=== PATIENT | male | born 1955 | race Caucasian/White ===

== ENCOUNTER 2017-08-11 05:37 | Inpatient (IN) | payer BC ==
[2017-08-08 13:24] VITALS: BMI 26.6
[~2017-08-11 05:37] MED LIST: BUPIVACAINE HCL/PF (5 MG/ML) 30 ML VIAL IJ ONE
[2017-08-11] MEDS ORDERED: MIDAZOLAM HCL 2 MG/2 ML SINGLE DOSE VIAL ONE (10:12)
[2017-08-11] MEDS ORDERED: ROCURONIUM BROMIDE 50 MG/5 ML VIAL ONE ×2 (10:12→12:20)
[2017-08-11] MEDS ORDERED: LIDOCAINE HCL/PF 2% SDV 5ML VIAL ONE (10:12)
[2017-08-11] MEDS ORDERED: PROPOFOL 20 ML ONE (10:12)
[2017-08-11] MEDS ORDERED: fentaNYL CITRATE 250 MCG/5 ML VIAL ONE (10:12)
[2017-08-11] MEDS ORDERED: ONDANSETRON 4 MG/2 ML VIAL IVPUSH PRN ×2 (10:29→14:56)
[2017-08-11] MEDS ORDERED: GENTAMICIN SO4 80 MG/2 ML VIAL ONE (10:33)
[2017-08-11] MEDS ORDERED: THROMBIN (BOVINE) 20,000 UNIT VIAL TP ONE (10:34)
[2017-08-11] MEDS ORDERED: BUPIVACAINE HCL/PF 0.5% (5MG/ML) 10 ML VIAL ONE (10:35)
[2017-08-11] MEDS ORDERED: THROMBIN (BOVINE) 5,000 UNIT VIAL TP ONE (10:42)
[2017-08-11] MEDS ORDERED: SODIUM CHLORIDE 0.9% P/F 10 ML VIAL IJ ONE ×3 (10:51→12:15)
--- NOTE | 2017-08-11 11:24 | HP ---
History & Physical Update - History History: No Change - Physical Physical: No Change - Assessment Assessment: No Change - Plan Plan: No Change (full H&P in chart from Dr. Leonard on 08/08/2017)
[2017-08-11] MEDS ORDERED: ceFAZolin SODIUM 1 GM VIAL ONE ×2 (11:52→22:41)
[2017-08-11] MEDS ORDERED: ceFAZolin SODIUM 1 GM VIAL IVPB ONE (11:54)
[2017-08-11] MEDS ORDERED: VANCOMYCIN 1,000 MG VIAL (RESTRICTED TO ID ONLY) ONE ×2 (11:55→12:15)
[2017-08-11] MEDS ORDERED: VANCOMYCIN 1,000 MG VIAL (RESTRICTED TO ID ONLY) IVPB ONE ×2 (11:56→12:09)
[2017-08-11] MEDS ORDERED: ONDANSETRON 4 MG/2 ML VIAL ONE ×2 (11:59→13:14)
[2017-08-11] MEDS ORDERED: HYDROGEN PEROXIDE 473 ML PO ONE (12:09)
[2017-08-11] MEDS ORDERED: GENTAMICIN SO4 80 MG/2 ML VIAL IVPB ONE (12:09)
[2017-08-11] MEDS ORDERED: BACITRACIN 50,000 UNITS VIAL NR ONE ×2 (12:09)
[2017-08-11] MEDS ORDERED: BUPIVACAINE HCL/PF (5 MG/ML) 30 ML VIAL IJ ONE (13:20)
[2017-08-11] MEDS ORDERED: GLYCOPYRROLATE 0.2 MG/1 ML VIAL ONE (13:22)
[2017-08-11] MEDS ORDERED: NEOSTIGMINE METHYLSULFATE 0.5 MG/ML - 10 ML MDV ONE (13:23)
[2017-08-11] MEDS: HYDROmorphone *PCA* 10MG/50ML DISP.SYRIN PCA SCH ×3 (14:30→17:55)
[2017-08-11] MEDS ORDERED: ACETAMINOPHEN 325 MG TABLET (FP) PO PRN (14:56)
[2017-08-11] MEDS ORDERED: PROMETHAZINE HCL 25 MG/1 ML VIAL IVPB PRN (15:08)
[2017-08-11] MEDS ORDERED: PANTOPRAZOLE 20 MG TABLET (FP) PO PRN (15:08)
[2017-08-11] MEDS ORDERED: DEXAMETHASONE SOD PHOSPHATE 4 MG/1 ML VIAL IVPUSH ONE (15:15)
--- NOTE | 2017-08-11 16:28 | OP ---
Operative Note - Note: Operative Date: 08/11/17 Pre-Operative Diagnosis: L2 fracture Operation: L1 to L2, L2 to L3 posterior lumbar decompression/fusion with pedicle screws Surgeon: Foster Duggan Refuse Driver: Briseida Candelaria Anesthesiologist/HOME HELP AIDE: Otis Amin Anesthesia: General Estimated Blood Loss (mls): 75 Drains, Volume Out (mls): 250 (ahuja) Fluid Volume Replaced (mls): 1,200 Operative Report Dictated: Yes
[2017-08-11 16:52] LABS: HEMATOCRIT 37.5 % (35.4-49); HEMOGLOBIN 12.5 GM/dL (11.7-16.9); MCH 31.6 pg (25.7-33.7); MCHC 33.3 g/dl (32.0-35.9); MEAN PLT VOLUME 8.9 fl (7.5-11.1); PLATELET COUNT 204 K/MM3 (134-434); RBC 3.94 M/mm3 (4.00-5.60); RDW 13.8 % (11.9-15.9); WHITE BLOOD COUNT 7.3 K/mm3 (4.0-10.0)
[2017-08-11] MEDS: LACTATED RINGERS SOLUTION 1,000 ML IV SCH (17:45)
[2017-08-11] MEDS ORDERED: DEXTROSE 5%-WATER - 50 ML IVPB ONE (22:41)
[2017-08-11] MEDS: CEFAZOLIN 1 GM in DEXTROSE 5%-WATER - 50 ML IVPB SCH (22:42)
[2017-08-12] MEDS: HYDROmorphone *PCA* 10MG/50ML DISP.SYRIN PCA SCH ×2 (00:24→14:48)
[2017-08-12] MEDS: LACTATED RINGERS SOLUTION 1,000 ML IV SCH ×2 (00:25→15:29)
[2017-08-12] MEDS: CEFAZOLIN 1 GM in DEXTROSE 5%-WATER - 50 ML IVPB SCH ×4 (00:25→15:03)
[2017-08-12] MEDS: HEPARIN NA (PORCINE) 5,000 UNITS/ML 1ML VIAL SQ SCH ×4 (00:25→23:55)
[2017-08-12] MEDS ORDERED: ceFAZolin SODIUM 1 GM VIAL ONE ×3 (01:15→15:01)
[2017-08-12] MEDS ORDERED: DEXTROSE 5%-WATER - 50 ML IVPB ONE ×3 (01:15→15:01)
[2017-08-12 08:20] LABS: HEMATOCRIT 33.7 % (35.4-49); HEMOGLOBIN 11.2 GM/dL (11.7-16.9); MCH 31.5 pg (25.7-33.7); MCHC 33.2 g/dl (32.0-35.9); MEAN CELL VOLUME 94.7 fl (80-96); PLATELET COUNT 178 K/MM3 (134-434); RBC 3.56 M/mm3 (4.00-5.60); RDW 13.5 % (11.9-15.9); WHITE BLOOD COUNT 11.5 K/mm3 (4.0-10.0)
[2017-08-12 08:42] LABS: CHLORIDE 106 mmol/L (98-107); SODIUM 140 mmol/L (136-145)
[2017-08-12] MEDS: PANTOPRAZOLE 20 MG TABLET (FP) PO SCH (09:17)
[2017-08-12] MEDS: DOCUSATE SODIUM 100 MG CAPSULE (FP) PO SCH ×2 (09:17→23:55)
[2017-08-12 09:39] LABS: ANION GAP 8 (8-16); BLOOD UREA NITROGEN 8 mg/dL (7-18); CALCIUM 7.9 mg/dL (8.5-10.1); CO2 26 mmol/L (21-32); CREATININE 0.8 mg/dL (0.7-1.3); GLUCOSE,RANDOM 111 mg/dL (74-106)
--- NOTE | 2017-08-12 10:50 | HP ---
Admitting History and Physical - Primary Care Physician PCP: Gallo Grimes - Admission Chief Complaint: back pain History of Present Illness: patient admitted with back pain with no past medical history past surgical: rib practure and pneumothorax fractured l1-l2 - Smoking History Smoking history: Never smoked Have you smoked in the past 12 months: Yes - Alcohol/Substance Use Hx Alcohol Use: Yes (RED WINE) Home Medications - Allergies Allergies/Adverse Reactions: Allergies Allergy/AdvReac Type Severity Reaction Status Date / Time banana Allergy Severe Verified 08/11/17 10:15 - Home Medications Home Medications: Ambulatory Orders Oxycodone Hydrochloride 1 tab PO PRN PRN 08/08/17 Pantoprazole Sodium [Protonix -] 20 mg PO PRN PRN 08/08/17 Physical Examination Vital Signs: Vital Signs Temperature 97.6 F 08/12/17 06:28 Pulse Rate 78 08/12/17 06:28 Respiratory Rate 20 08/12/17 06:28 Blood Pressure 106/65 08/12/17 06:28 O2 Sat by Pulse Oximetry (%) 99 08/11/17 16:50 Constitutional: Yes: Calm Neck: Yes: Trachea Midline Cardiovascular: Yes: Regular Rate and Rhythm, S1, S2 Respiratory: Yes: CTA Bilaterally Gastrointestinal: Yes: Normal Bowel Sounds, Soft Edema: No Neurological: Yes: Alert, Oriented Labs: CBC, BMP 08/12/17 06:30 08/12/17 06:30 Imaging - Results Cat Scan: Report Reviewed Problem List - Problems (1) Back pain Assessment/Plan: - Note: Operative Date: 08/11/17 Pre-Operative Diagnosis: L2 fracture Operation: L1 to L2, L2 to L3 posterior lumbar decompression/fusion with pedicle screws Surgeon: Foster Duggan Open Hearth Furnace Operator Helper: Briseida Candelaria Anesthesiologist/INSULATION ESTIMATOR: Otis Amin Anesthesia: General Estimated Blood Loss (mls): 75 Drains, Volume Out (mls): 250 (ahuja) Fluid Volume Replaced (mls): 1,200 Operative Report Dictated: Yes LEATHER SPRAYER pump dvt ppx zofran stool softners ancef ahuja-trial of voiding once cleared by KEVIN Code(s): M54.9 - DORSALGIA, UNSPECIFIED Qualifiers: Back pain location: low back pain Chronicity: acute Back pain laterality : right Sciatica presence: without sciatica Qualified Code(s): M54.5 - Low back pain (2) Enlarged prostate Assessment/Plan: PSA ordered Code(s): N40.0 - BENIGN PROSTATIC HYPERPLASIA WITHOUT LOWER URINRY TRACT SYMP
--- NOTE | 2017-08-12 23:25 | PN ---
Progress Note (short form) - Note Progress Note: Anesthesia postop note and pain management follow up 61 y/o M s/p GA for PLIF, restaurant area director for pain control POD#1, vss, aaox3, pain well controlled on restaurant area director, will continue restaurant area director today No anesthesia complications.
[2017-08-13 08:02] LABS: BASO % 0.4 % (0-2.0); EOS % 0.6 % (0-4.5); HEMATOCRIT 30.9 % (35.4-49); HEMOGLOBIN 10.6 GM/dL (11.7-16.9); LYMPH % 23.4 % (8-40); MCH 32.2 pg (25.7-33.7); MCHC 34.2 g/dl (32.0-35.9); MEAN PLT VOLUME 9.2 fl (7.5-11.1); MONO % 11.5 % (3.8-10.2); NEUT % 64.1 % (42.8-82.8); PLATELET COUNT 192 K/MM3 (134-434); RBC 3.28 M/mm3 (4.00-5.60); RDW 13.4 % (11.9-15.9); WHITE BLOOD COUNT 6.3 K/mm3 (4.0-10.0)
[2017-08-13] MEDS: HEPARIN NA (PORCINE) 5,000 UNITS/ML 1ML VIAL SQ SCH ×3 (08:03→22:21)
[2017-08-13 08:34] LABS: ALBUMIN 2.9 g/dl (3.4-5.0); CALCIUM 7.7 mg/dL (8.5-10.1); CHLORIDE 102 mmol/L (98-107); POTASSIUM 3.8 mmol/L (3.5-5.1); SODIUM 140 mmol/L (136-145)
[2017-08-13 08:40] LABS: ALK PHOS 58 U/L (45-117); ANION GAP 7 (8-16); BILIRUBIN,TOTAL 0.8 mg/dL (0.2-1.0); BLOOD UREA NITROGEN 10 mg/dL (7-18); CO2 31 mmol/L (21-32); CREATININE 0.9 mg/dL (0.7-1.3); GLUCOSE,RANDOM 104 mg/dL (74-106); SGOT/AST 18 U/L (15-37); SGPT/ALT 15 U/L (12-78); TOT PROT 5.7 g/dl (6.4-8.2)
[2017-08-13] MEDS: DOCUSATE SODIUM 100 MG CAPSULE (FP) PO SCH ×2 (09:23→22:21)
[2017-08-13] MEDS: HYDROmorphone *PCA* 10MG/50ML DISP.SYRIN PCA SCH ×2 (09:23→15:21)
[2017-08-13] MEDS: PANTOPRAZOLE 20 MG TABLET (FP) PO SCH (09:23)
--- NOTE | 2017-08-13 09:31 | PN ---
Progress Note (short form) - Note Progress Note: POD#2 Pt with complaints of back pain. OOB yesterday with PT and ambulated. Voiding without difficulty. Tolerating a regular diet wihtout nausea or emesis No bowel function. Vital Signs Period Temp Pulse Resp BP Sys/Broderick Pulse Ox Last 24 Hr 98 F-100.1 F 65-82 18-20 106-125/62-87 DESTINY: serosangrenous, 115ml GEN: A&0x3 NAD CV: RRR Lungs: CTA b/l ABD: soft, non-distended, non-tender BACK: Dressing c/d/i with Aquacel. 3 dried blood spots the size of a dime. Destiny removed without difficulty and 4x4 gauze tegaderm applied. LE: 5/5 dorsi/plantar flexion/EHL b/l. CBC, BMP 08/13/ 07:00 05/ 07:00 A/P: 61 yo male s/p L1-L3 posterior lumbar fusion/decompression for L2 fracture DESTINY removed today Using IV dilaudid DENTIST ATTENDANT for pain control, added valium to help with pain and hopefully wean off of DENTIST ATTENDANT. Continue stool softners OOB with PT/TLSO brace Heparin SQ for DVT ppx and SCDs Regular diet as tolerated IV fluids decreased
[2017-08-13] MEDS: LACTATED RINGERS SOLUTION 1,000 ML IV SCH (10:10)
[2017-08-13] MEDS: diazePAM 5 MG TABLET PO SCH ×2 (10:41→22:22)
--- NOTE | 2017-08-13 13:58 | PN ---
Progress Note (short form) - Note Progress Note: Anesthesia post op/pain Pt seen and examined S:alert and awake comfortable O: Vital Signs Temperature 99.3 F 08/13/17 09:28 Pulse Rate 80 08/13/17 09:28 Respiratory Rate 18 08/13/17 09:28 Blood Pressure 115/60 08/13/17 09:28 O2 Sat by Pulse Oximetry (%) 99 08/11/17 16:50 CBC, BMP 08/13/17 07:00 08/13/17 07:00 A/P:L1-L3 Posterior decompression and instrumentation and fusion s/p Doing well post op Uses SUGAR DRIER Continue SUGAR DRIER Continue current care John Erwin MD
[2017-08-13] MEDS: POLYETHYLENE GLYCOL 3350 119 GM BTL PO PRN (18:28)
--- NOTE | 2017-08-13 22:42 | PN ---
Progress Note, Physician Chief Complaint: Lower back pain History of Present Illness: L1-L3 Posterior decompression and instrumentation and fusion s/p Doing well post op Using SOAP TENDER Voiding well walked with PT yesterday - Current Medication List Current Medications: Active Medications Acetaminophen (Tylenol -) 650 mg PO Q4H PRN PRN Reason: FEVER Diazepam (Valium -) 5 mg PO BID [facility] Last Admin: 08/13/17 22:22 Dose: 5 mg Docusate Sodium (Colace -) 100 mg PO BID [facility] Last Admin: 08/13/17 22:21 Dose: 100 mg Heparin Sodium (Porcine) (Heparin -) 5,000 unit SQ TID [facility] Last Admin: 08/13/17 22:21 Dose: 5,000 unit Hydromorphone HCl (Dilaudid Exhibits Coordinator -) 10 mg SOAP TENDER SOAP TENDER [facility]; Protocol Stop: 08/18/17 10:29 Last Admin: 08/13/17 15:21 Dose: Not Given Lactated Ringer's (Lactated Ringers Solution) 1,000 mls @ 10 mls/hr IV ASDIR [facility] Last Admin: 08/13/17 10:10 Dose: Not Given Ondansetron HCl (Zofran Injection) 4 mg IVPUSH Q6H PRN PRN Reason: NAUSEA AND/OR VOMITING Pantoprazole Sodium (Protonix -) 20 mg PO DAILY [facility] Last Admin: 08/13/17 09:23 Dose: 20 mg Polyethylene Glycol (Miralax (For Daily Use) -) 17 gm PO DAILY PRN PRN Reason: CONSTIPATION Last Admin: 08/13/17 18:28 Dose: 17 grams Promethazine HCl (Phenergan Injection -) 12.5 mg IVPB Q6H PRN PRN Reason: NAUSEA AND/OR VOMITING - Objective Vital Signs: Vital Signs Temperature 98.6 F 08/13/17 21:35 Pulse Rate 82 08/13/17 21:35 Respiratory Rate 18 08/13/17 21:35 Blood Pressure 126/67 08/13/17 21:35 O2 Sat by Pulse Oximetry (%) 99 08/13/17 09:00 Constitutional: Yes: Well Nourished, No Distress, Calm Cardiovascular: Yes: Regular Rate and Rhythm Respiratory: Yes: Regular Gastrointestinal: Yes: Normal Bowel Sounds, Soft Musculoskeletal: Yes: Back Pain, Muscle Weakness Extremities: Yes: WNL Wound/Incision: Yes: Dressing Dry and Intact Neurological: Yes: Alert, Oriented Psychiatric: Yes: Alert, Oriented Labs: CBC, BMP 08/13/17 07:00 08/13/17 07:00 Problem List - Problems (1) Back pain Assessment/Plan: perative Date: 08/11/17 Pre-Operative Diagnosis: L2 fracture Operation: L1 to L2, L2 to L3 posterior lumbar decompression/fusion with pedicle screws Surgeon: Foster Duggan Continue SOAP TENDER pump for now, taper off as per surgery and anesthesia recommendation dvt ppx zofran stool softners Physical therapy Code(s): M54.9 - DORSALGIA, UNSPECIFIED Qualifiers: Back pain location: low back pain Chronicity: acute Back pain laterality : right Sciatica presence: without sciatica Qualified Code(s): M54.5 - Low back pain (2) Anemia Assessment/Plan: -2/2 to surgery, dilutional -repeat labs in AM -check iron profile and b12 Code(s): D64.9 - ANEMIA, UNSPECIFIED Assessment/Plan see problem list
[2017-08-14] MEDS: HEPARIN NA (PORCINE) 5,000 UNITS/ML 1ML VIAL SQ SCH ×3 (06:20→21:06)
[2017-08-14 08:34] LABS: BASO % 0.2 % (0-2.0); EOS % 0.2 % (0-4.5); HEMATOCRIT 33.1 % (35.4-49); HEMOGLOBIN 11.2 GM/dL (11.7-16.9); LYMPH % 11.2 % (8-40); MCH 31.7 pg (25.7-33.7); MCHC 33.9 g/dl (32.0-35.9); MEAN CELL VOLUME 93.6 fl (80-96); MEAN PLT VOLUME 8.7 fl (7.5-11.1); MONO % 10.6 % (3.8-10.2); NEUT % 77.8 % (42.8-82.8); PLATELET COUNT 175 K/MM3 (134-434); RBC 3.54 M/mm3 (4.00-5.60); RDW 13.5 % (11.9-15.9); WHITE BLOOD COUNT 7.6 K/mm3 (4.0-10.0)
[2017-08-14 08:55] LABS: CHLORIDE 97 mmol/L (98-107); POTASSIUM 3.6 mmol/L (3.5-5.1); SODIUM 133 mmol/L (136-145)
[2017-08-14 09:34] LABS: ALBUMIN 2.9 g/dl (3.4-5.0); ALK PHOS 60 U/L (45-117); ANION GAP 7 (8-16); BILIRUBIN,TOTAL 0.7 mg/dL (0.2-1.0); BLOOD UREA NITROGEN 7 mg/dL (7-18); CALCIUM 7.9 mg/dL (8.5-10.1); CO2 29 mmol/L (21-32); CREATININE 0.7 mg/dL (0.7-1.3); GLUCOSE,RANDOM 109 mg/dL (74-106); SGOT/AST 18 U/L (15-37); SGPT/ALT 17 U/L (12-78); TOT PROT 6.1 g/dl (6.4-8.2)
[2017-08-14] MEDS: DOCUSATE SODIUM 100 MG CAPSULE (FP) PO SCH ×3 (09:50→21:05)
[2017-08-14] MEDS: PANTOPRAZOLE 20 MG TABLET (FP) PO SCH (09:50)
[2017-08-14] MEDS: diazePAM 5 MG TABLET PO SCH ×2 (09:50→21:05)
[2017-08-14] MEDS: LACTATED RINGERS SOLUTION 1,000 ML IV SCH (09:50)
[2017-08-14] MEDS: POLYETHYLENE GLYCOL 3350 119 GM BTL PO PRN (09:50)
--- NOTE | 2017-08-14 13:06 | PN ---
Progress Note (short form) - Note Progress Note: s/p L1-3 lumbar fusion post op day 3, core manager for pain control. not using core manager often but not tolerating PO. advised we will convert to oral analgesics once tolerating PO. Will continue core manager for now.
--- NOTE | 2017-08-14 13:16 | PN ---
Progress Note, Physician Chief Complaint: patient seen and examine had a small BM today says he is not using PAVER OPERATOR pump - Current Medication List Current Medications: Active Medications Acetaminophen (Tylenol -) 650 mg PO Q4H PRN PRN Reason: FEVER Diazepam (Valium -) 5 mg PO BID [facility] Last Admin: 08/14/17 09:50 Dose: 5 mg Docusate Sodium (Colace -) 100 mg PO TID ROBBY Heparin Sodium (Porcine) (Heparin -) 5,000 unit SQ TID [facility] Last Admin: 08/14/17 06:20 Dose: 5,000 unit Hydromorphone HCl (Dilaudid Senior Relationship Manager -) 10 mg PAVER OPERATOR PAVER OPERATOR [facility]; Protocol Stop: 08/18/17 10:29 Last Admin: 08/13/17 15:21 Dose: Not Given Ondansetron HCl (Zofran Injection) 4 mg IVPUSH Q6H PRN PRN Reason: NAUSEA AND/OR VOMITING Last Admin: 08/14/17 01:26 Dose: 4 mg Pantoprazole Sodium (Protonix -) 20 mg PO DAILY [facility] Last Admin: 08/14/17 09:50 Dose: 20 mg Polyethylene Glycol (Miralax (For Daily Use) -) 17 gm PO DAILY PRN PRN Reason: CONSTIPATION Last Admin: 08/14/17 09:50 Dose: 17 grams Promethazine HCl (Phenergan Injection -) 12.5 mg IVPB Q6H PRN PRN Reason: NAUSEA AND/OR VOMITING - Objective Vital Signs: Vital Signs Temperature 98.0 F 08/14/17 09:52 Pulse Rate 94 H 08/14/17 09:52 Respiratory Rate 18 08/14/17 09:52 Blood Pressure 133/78 08/14/17 09:52 O2 Sat by Pulse Oximetry (%) 97 08/13/17 21:00 Constitutional: Yes: Calm Cardiovascular: Yes: Regular Rate and Rhythm, S1, S2 Respiratory: Yes: CTA Bilaterally Gastrointestinal: Yes: Normal Bowel Sounds, Soft Musculoskeletal: Yes: Other (midline dressing) Extremities: Yes: Other (scd) Edema: No Neurological: Yes: Alert, Oriented Labs: CBC, BMP 08/14/17 07:30 08/14/17 07:30 Problem List - Problems (1) Back pain Assessment/Plan: - Note: Operative Date: 08/11/17 Pre-Operative Diagnosis: L2 fracture Operation: L1 to L2, L2 to L3 posterior lumbar decompression/fusion with pedicle screws Surgeon: Foster Duggan Commercial Sales Representative: Briseida Candelaria Anesthesiologist/MESSAGE AND DELIVERY SERVICE PRICER: Otis Amin Anesthesia: General Estimated Blood Loss (mls): 75 Drains, Volume Out (mls): 250 (ahuja) Fluid Volume Replaced (mls): 1,200 Operative Report Dictated: Yes PAVER OPERATOR pump dc dvt ppx zofran stool softners and miralax ancef ahuja-trial of voiding once cleared by KEVIN dc ivf. PT eval Code(s): M54.9 - DORSALGIA, UNSPECIFIED Qualifiers: Back pain location: low back pain Chronicity: acute Back pain laterality : right Sciatica presence: without sciatica Qualified Code(s): M54.5 - Low back pain (2) Enlarged prostate Assessment/Plan: PSA noted ok Code(s): N40.0 - BENIGN PROSTATIC HYPERPLASIA WITHOUT LOWER URINRY TRACT SYMP
[2017-08-14] MEDS ORDERED: ACETAMINOPHEN 325 MG TABLET (FP) PO PRN (14:25)
[2017-08-14] MEDS ORDERED: SIMETHICONE 80 MG TAB.CHEW (FP) PO PRN (16:40)
[2017-08-14] MEDS: oxyCODONE HCL 5 MG TABLET PO PRN (16:45)
--- NOTE | 2017-08-14 16:48 | PN ---
Progress Note (short form) - Note Progress Note: Surgery POD #3 L1 -L3 posterior lumbar decompression/fusion with pedicle screws. Patient seen and examined at bedside. Patient c/o mild anterior thigh pain b/l and states he is having lots of gas pain. He is tolerating a regular diet and just moved his bowels for the first time this afternoon. He has been OOB ambulating with assist and he denies any CP, SOB, N/V/D, Fever or Chills. Vital Signs Temp 98.8 F 08/14/17 14:05 Pulse 93 H 08/14/17 14:05 Resp 16 08/14/17 14:05 BP 131/77 08/14/17 14:05 Pulse Ox 97 08/13/17 21:00 Intake & Output 08/13/17 08/14/17 08/14/17 23:59 11:59 23:59 Intake Total 120 Output Total 700 Balance -580 Intake: IV 120 Lactated Ringers Solution 120 1,000 ml @ 10 mls/hr IV ASDIR ROBBY Rx#:[id number] Output: Urine 700 Void 700 Other: Voiding Method Urinal Toilet # Unmeasured Voids Void 3 CBC, BMP 08/14/17 07:30 08/14/17 07:30 PE: A&Ox3, NAD unlabored resp on RA incision over lumbar spine, d/c/i with сергей insitu, no tracking erythema, edema, d/c of evidence of collection. drain site c/d/i with no d/c. Aquacell dressing applied to midline incision, pressure dressing applied to drain site. b/l LE compartments soft, supple and non-tender to palpation with + pedal pulses , 5/5 dorsi/plantar flexion and sensation to light touch intact throughout. Problem List - Problems (1) S/P laminectomy with spinal fusion Assessment/Plan: POD #3 miltilevel lumbar decompression and fusion, patient doing well. 1) Continue TLSO brace when OOB-OOB as tolerated 2) continue DVT prophylaxis 3) daily IS 4) simenthcone added for gas- encourage hydration and ambulation 5) d/c planning for home likely tomorrow. Evaluation and plan discussed with Dr Duggan. Code(s): Z98.1 - ARTHRODESIS STATUS
[2017-08-15] MEDS: oxyCODONE HCL 5 MG TABLET PO PRN (02:40)
[2017-08-15] MEDS: HEPARIN NA (PORCINE) 5,000 UNITS/ML 1ML VIAL SQ SCH ×2 (05:56→14:27)
[2017-08-15] MEDS: DOCUSATE SODIUM 100 MG CAPSULE (FP) PO SCH ×2 (06:03→14:27)
[2017-08-15 06:08] LABS: SERUM IRON SATURATION 9 % (15-55); TOTAL IRON BINDING CAPACITY 229 ug/dL (250-450); UIBC 209 ug/dL (111-343)
[2017-08-15 09:26] LABS: CHLORIDE 101 mmol/L (98-107); POTASSIUM 3.8 mmol/L (3.5-5.1); SODIUM 138 mmol/L (136-145)
[2017-08-15 09:36] LABS: ALBUMIN 2.8 g/dl (3.4-5.0); ALK PHOS 56 U/L (45-117); ANION GAP 7 (8-16); BILIRUBIN,TOTAL 0.7 mg/dL (0.2-1.0); BLOOD UREA NITROGEN 8 mg/dL (7-18); CO2 30 mmol/L (21-32); CREATININE 0.7 mg/dL (0.7-1.3); GLUCOSE,RANDOM 93 mg/dL (74-106); SGOT/AST 17 U/L (15-37); SGPT/ALT 17 U/L (12-78)
[2017-08-15] MEDS: diazePAM 5 MG TABLET PO SCH (09:36)
[2017-08-15] MEDS: PANTOPRAZOLE 20 MG TABLET (FP) PO SCH (09:36)
--- NOTE | 2017-08-15 10:55 | PN ---
Progress Note (short form) - Note Progress Note: Anesthesia DIRECTOR RELIGIOUS EDUCATION order POD #4. L1 -L3 posterior lumbar decompression/fusion with pedicle screws. Pain well controlled. On po analgetics. DIRECTOR RELIGIOUS EDUCATION d/c'd. Signed off.
--- NOTE | 2017-08-15 13:37 | PN ---
Progress Note (short form) - Note Progress Note: Pt having bowel, movement and tolerating a diet Vital Signs Period Temp Pulse Resp BP Sys/Broderick Pulse Ox Last 24 Hr 98.4 F-99.1 F 82-93 16-20 100-131/54-77 97-97 GEN: Appears comfortable Abd: soft, non-distended, non-tender Back: dressing from surgery remains c/d/i, DESTINY removal site dry. LE: no calf tendnerss or swelling noted b/l CBC, BMP 08/14/17 07:30 08/15/17 07:00 A/P: 61 yo male s/p L1-L3 posterior lumbar fusion/decompression for L2 fracture Pt seen by Dr. Duggan this am and cleared for discharge. Script and instructions were given to the patient and completed on his discharge paperwork
[2017-08-15 14:03] VITALS: BP 108/73; PULSE 92; TEMP 98.3
--- NOTE | 2017-08-15 15:09 | DS ---
"Physical Examination Vital Signs: Vital Signs Temperature 98.3 F 08/15/17 14:01 Pulse Rate 92 H 08/15/17 14:01 Respiratory Rate 20 08/15/17 14:01 Blood Pressure 108/73 08/15/17 14:01 O2 Sat by Pulse Oximetry (%) 97 08/15/17 09:00 Constitutional: Yes: Calm Neck: Yes: Trachea Midline Cardiovascular: Yes: Regular Rate and Rhythm, S1, S2 Respiratory: Yes: CTA Bilaterally Gastrointestinal: Yes: Normal Bowel Sounds, Soft Musculoskeletal: Yes: Other (midline incision) Edema: No Labs: CBC, BMP 08/14/17 07:30 08/15/17 07:00 Discharge Summary Reason For Visit: LUMBAR 1 & 2 FRACTURES Current Active Problems Anemia (Acute) Enlarged prostate (Acute) S/P laminectomy with spinal fusion (Acute) Hospital Course: - Primary Care Physician PCP: Gallo Grimes - Admission Chief Complaint: back pain History of Present Illness: patient admitted with back pain with no past medical history past surgical: rib practure and pneumothorax fractured l1-l2 - Smoking History Smoking history: Never smoked Have you smoked in the past 12 months: Yes - Alcohol/Substance Use Hx Alcohol Use: Yes (RED WINE) Home Medications - Allergies Allergies/Adverse Reactions: Allergies Allergy/AdvReac Type Severity Reaction Status Date / Time banana Allergy Severe Verified 08/11/17 10:15 Operative Note - Note: Operative Date: 08/11/17 Pre-Operative Diagnosis: L2 fracture Operation: L1 to L2, L2 to L3 posterior lumbar decompression/fusion with pedicle screws Surgeon: Foster Duggan Manager Finance: Briseida Candelaria Anesthesiologist/STEELSCOPE OPERATOR: Otis Amin Anesthesia: General Estimated Blood Loss (mls): 75 Drains, Volume Out (mls): 250 (ahuja) Fluid Volume Replaced (mls): 1,200 Operative Report Dictated: Yes DESTINY drain removed and now ready to go home Condition: Good - Instructions Diet, Activity, Other Instructions: This report was requested by: Briseida Candelaria | Reference #: [id number] 07/30/2017 07/30/2017 oxycodone-acetaminophen 5-325 mg tablet [address] Discharge Instructions Post Operative Instructions Physical activity Resume your normal everyday activity as tolerated no heavy lifting or exercise until seen by your surgeon. You may walk unlimited amounts of and climb stairs. Do not resume driving the car until cleared by your surgeon. Wear your TLSO brace if oob/ambulating for more than 5 mintues. Wound care You can shower but do not submerge the incisions. Keep incisions covered with large tegaderm/saran wrap when showering, after, remove tegaderm and apply new clean dry dressings. Do not apply any ointments or lotions to incisions. Diet There are no dietary restrictions. Eat healthy, high-fiber foods. Drink 6 to 8 glasses of liquid each day. This will assist in keeping your bowels are regular. Pain management You may take Tylenol or acetaminophen for pain. Any pain prescription medication ordered should be taken as prescribed for moderate to severe pain. Call Dr. Duggan for any of the following: Severe pain not relieved by medication New or worsening symptoms Fever of 101 or higher Excessive bleeding or drainage on dressing Inability to urinate Call to jeremías a follow up appointment in 2 weeks Disposition: HOME - Home Medications Comprehensive Discharge Medication List: Ambulatory Orders Pantoprazole Sodium [Protonix -] 20 mg PO PRN PRN 08/08/17 Cyclobenzaprine HCl [Flexeril -] 10 mg PO BID PRN #10 tablet 08/15/17 Docusate Sodium [Colace -] 100 mg PO BID #30 capsule 08/15/17 Oxycodone HCl/Acetaminophen [Percocet 5-325 mg Tablet] 1 - 2 tab PO Q6H PRN #30 tab MDD 8 08/15/17"
== END 2017-08-15 15:26 | disposition home or self-care (01) | DRG 460 ==
LOC: JSAMEDAYSX 05:37 → EDSTATUS 12:30 → J8W 16:34
PROVIDERS: ADMIT Family Medicine; ATTEND Family Medicine
PROC: 0JX70ZZ Transfer Back Subcutaneous Tissue and Fascia, Open Approach (ICD-10-PCS; 2017-08-11)
PROC: 00NY0ZZ Release Lumbar Spinal Cord, Open Approach (ICD-10-PCS; 2017-08-11)
PROC: 0SG1071 Fusion of 2 or more Lumbar Vertebral Joints with Autologous Tissue Substitute, Posterior Approach, Posterior Column, Open Approach (ICD-10-PCS; principal; 2017-08-11 12:30)
DX: S32.019A Unspecified fracture of first lumbar vertebra, initial encounter for closed fracture (principal); S32.021A Stable burst fracture of second lumbar vertebra, initial encounter for closed fracture; D64.9 Anemia, unspecified; N40.0 Benign prostatic hyperplasia without lower urinary tract symptoms; V43.62XA Car passenger injured in collision with other type car in traffic accident, initial encounter; Y93.89 Activity, other specified; Y92.488 Other paved roadways as the place of occurrence of the external cause; Y99.8 Other external cause status
CPT/HCPCS: 36415; 72131-TC; 76000-TC-FY; 80048; 80053; 82607; 82728; 83540; 83550; 84153; 85025; 85027; 86850; 86900; 86901; 94010; 94760; 97116-GP; 97161-GP; J1644

== ENCOUNTER 2020-09-01 13:56 | Observation (INO) | payer BC ==
[2020-09-01 17:12] LABS: CHLORIDE 108 mmol/L (98-107); SODIUM 142 mmol/L (136-145)
[2020-09-01 17:14] LABS: CALCIUM 8.7 mg/dL (8.5-10.1)
[2020-09-01 17:15] LABS: ANION GAP 7 MMOL/L (8-16); BLOOD UREA NITROGEN 15.1 mg/dL (7-18); CO2 27 mmol/L (21-32); GLUCOSE,RANDOM 90 mg/dL (74-106)
[2020-09-01 17:18] LABS: CREATININE 0.9 mg/dL (0.55-1.3); SGOT/AST 13 U/L (15-37); SGPT/ALT 21 U/L (13-61)
[2020-09-01 17:19] LABS: BILIRUBIN,TOTAL 0.3 mg/dL (0.2-1)
[2020-09-01 17:20] LABS: TOT PROT 7.4 g/dl (6.4-8.2)
[2020-09-01 17:21] LABS: ALK PHOS 58 U/L (45-117)
[2020-09-01 17:23] LABS: N-TERMINAL BNP 55.6 pg/ml (5-125)
[2020-09-01 17:27] LABS: BASO % 0.6 % (0-2.0); HEMATOCRIT 38.7 % (35.4-49); HEMOGLOBIN 13.1 GM/dL (11.7-16.9); INR 1.03 (0.83-1.09); LYMPH % 25.6 % (8-40); MCH 30.9 pg (25.7-33.7); MCHC 33.9 g/dl (32.0-35.9); MEAN CELL VOLUME 91.1 fl (80-96); MEAN PLT VOLUME 8.7 fl (7.5-11.1); NEUT % 63.8 % (42.8-82.8); PLATELET COUNT 202 K/MM3 (134-434); PROTHROMBIN TIME (PATIENT) 12.6 SEC (9.7-13.0); RBC 4.24 M/mm3 (4.00-5.60); RDW 14.6 % (11.9-15.9); WHITE BLOOD COUNT 6.4 K/mm3 (4.0-10.0)
[2020-09-01 17:30] LABS: ACTIVATED PTT 27.4 SECONDS (25.2-36.5)
[2020-09-01] MEDS ORDERED: MAG HYDROX/AL HYDROX/SIMETH -MYLANTA- ORAL SUSPENSION PO ONE (19:25)
[2020-09-01] MEDS ORDERED: ACETAMINOPHEN 1000 MG/100 ML VIAL (NON FORMULARY) IVPB ONE (19:25)
[2020-09-01] MEDS ORDERED: ACETAMINOPHEN INJECTION 100 ML IVPB ONE (19:44)
[2020-09-01] MEDS ORDERED: MAG HYDROX/AL HYDROX/SIMETH 30 ML UNIT-DOSE CUP ONE (19:44)
[2020-09-01 22:45] VITALS: BMI 31.1
[2020-09-01 23:11] LABS: CHOLESTEROL 242 mg/dL (50-200); LDL CHOLESTEROL (ONLY SJRH) 144 mg/dL (5-100); TRIGLYCERIDES 95 mg/dL (0-150)
[2020-09-01 23:13] LABS: HDL CHOLESTEROL 73 mg/dL (40-60)
[2020-09-02 06:54] LABS: HEMATOCRIT 39.5 % (35.4-49); MCH 30.8 pg (25.7-33.7); MEAN CELL VOLUME 93.4 fl (80-96); MEAN PLT VOLUME 8.9 fl (7.5-11.1); PLATELET COUNT 202 K/MM3 (134-434); RBC 4.24 M/mm3 (4.00-5.60); RDW 14.3 % (11.9-15.9); WHITE BLOOD COUNT 5.8 K/mm3 (4.0-10.0)
[2020-09-02 07:57] LABS: CALCIUM 8.7 mg/dL (8.5-10.1)
[2020-09-02 07:58] LABS: BLOOD UREA NITROGEN 11.6 mg/dL (7-18)
[2020-09-02 08:01] LABS: CREATININE 0.7 mg/dL (0.55-1.3)
[2020-09-02 08:03] LABS: BILIRUBIN,TOTAL 0.6 mg/dL (0.2-1); TOT PROT 7.1 g/dl (6.4-8.2)
[2020-09-02 08:20] LABS: ALBUMIN 3.8 g/dl (3.4-5.0)
[2020-09-02 09:30] VITALS: BP 122/78; PULSE 76; TEMP 98.9
[2020-09-02] MEDS ORDERED: ENOXAPARIN NA (PORCINE) 40 MG/0.4 ML DISP.SYRIN SQ SCH (10:00)
[2020-09-02] MEDS ORDERED: clonazePAM 0.5 MG TABLET PO ONE (10:31)
== END 2020-09-02 11:39 | disposition home or self-care (01) ==
LOC: JER 13:56 → INTOOBSV 17:59 → JERBED 17:59 → J4W 21:58
PROVIDERS: ADMIT Hospitalist; ATTEND Student in an Organized Health Care Education/Training Program
PROC: 3E033NZ Introduction of Analgesics, Hypnotics, Sedatives into Peripheral Vein, Percutaneous Approach (ICD-10-PCS; principal; 2020-09-01)
PROC: 3E013GC Introduction of Other Therapeutic Substance into Subcutaneous Tissue, Percutaneous Approach (ICD-10-PCS; 2020-09-01)
DX: R07.9 Chest pain, unspecified (principal); I49.9 Cardiac arrhythmia, unspecified; E78.5 Hyperlipidemia, unspecified; K21.9 Gastro-esophageal reflux disease without esophagitis; Z72.0 Tobacco use; K42.9 Umbilical hernia without obstruction or gangrene; K50.90 Crohn's disease, unspecified, without complications; D17.1 Benign lipomatous neoplasm of skin and subcutaneous tissue of trunk; Z87.81 Personal history of (healed) traumatic fracture
CPT/HCPCS: 36415; 71046-TC-FY; 74177-TC; 80053; 80061; 82550; 83036; 83721; 83880; 84484; 85025; 85027; 85379; 85610; 85730; 93005; 93010; 99285-25; C9803; G0378; J0131; Q9967; U0003; U0005

== ENCOUNTER 2020-11-14 04:27 | Day surgery (SDC) | payer BC ==
[2020-11-10 10:39] VITALS: BMI 28.5
[2020-11-14] MEDS ORDERED: DEXAMETHASONE SOD PHOSPHATE 4 MG/1 ML VIAL ONE (09:44)
[2020-11-14] MEDS ORDERED: LIDOCAINE HCL 1%, 10 MG/ML (20ML VIAL) ONE ×2 (09:44→10:54)
[2020-11-14] MEDS ORDERED: PROPOFOL 20 ML ONE ×2 (09:44→11:42)
[2020-11-14] MEDS ORDERED: ONDANSETRON 4 MG/2 ML VIAL ONE (09:44)
[2020-11-14] MEDS ORDERED: LIDOCAINE HCL/PF 2% SDV 5ML VIAL ONE (09:44)
[2020-11-14] MEDS ORDERED: BUPIVACAINE HCL/PF 0.5% (5MG/ML) 10 ML VIAL ONE ×2 (09:44→10:54)
[2020-11-14] MEDS ORDERED: MIDAZOLAM HCL 2 MG/2 ML SINGLE DOSE VIAL ONE (09:44)
[2020-11-14] MEDS ORDERED: ROCURONIUM BROMIDE 50 MG/5 ML SYRINGE ONE (09:47)
[2020-11-14] MEDS ORDERED: ceFAZolin SODIUM 1 GM VIAL IVPB ONE (10:13)
[2020-11-14] MEDS ORDERED: LIDOCAINE HCL 1%, 10 MG/ML (20ML VIAL) INF ONE (10:44)
[2020-11-14] MEDS ORDERED: BUPIVACAINE HCL/PF 0.5% (5 MG/ML) 30 ML VIAL IJ ONE (10:45)
[2020-11-14] MEDS ORDERED: GLYCOPYRROLATE 0.2 MG/1 ML VIAL ONE (11:45)
[2020-11-14] MEDS ORDERED: NEOSTIGMINE METHYLSULFATE 0.5 MG/1 ML - 10 ML MDV ONE (11:45)
[2020-11-14] MEDS ORDERED: ceFAZolin SODIUM 1 GM VIAL ONE (11:45)
[2020-11-14] MEDS ORDERED: KETOROLAC TROMETHAMINE 30 MG/1 ML VIAL ONE (11:46)
[2020-11-14] MEDS ORDERED: ONDANSETRON 4 MG/2 ML VIAL IVPUSH PRN (12:55)
[2020-11-14] MEDS ORDERED: oxyCODONE HCL 5 MG TABLET PO PRN ×2 (12:55)
[2020-11-14] MEDS ORDERED: LACTATED RINGERS SOLUTION 1,000 ML IV SCH (13:00)
[2020-11-14] MEDS ORDERED: HYDROmorphone HCl 2 MG/ML VIAL ONE (13:03)
[2020-11-14] MEDS ORDERED: HYDROmorphone HCl 2 MG/ML VIAL IVPUSH ONE (13:04)
[2020-11-14 15:39] VITALS: BP 107/60; PULSE 74; TEMP 97.6
== END 2020-11-14 16:00 | disposition home or self-care (01) ==
LOC: JASU-SURG 04:27
PROVIDERS: ATTEND Surgery
PROC: 0WQF0ZZ Repair Abdominal Wall, Open Approach (ICD-10-PCS; principal; 2020-11-14 08:00)
PROC: 0YU507Z Supplement Right Inguinal Region with Autologous Tissue Substitute, Open Approach (ICD-10-PCS; 2020-11-14 08:00)
DX: K43.9 Ventral hernia without obstruction or gangrene (principal); K40.90 Unilateral inguinal hernia, without obstruction or gangrene, not specified as recurrent
CPT/HCPCS: 88302-TC; 94760

== ENCOUNTER 2020-11-28 13:49 | Inpatient (IN) | payer BC ==
[2020-11-28] MEDS ORDERED: SODIUM CHLORIDE 0.9% 500 ML INFUS.BAG IV ONE (14:51)
[2020-11-28] MEDS ORDERED: ACETAMINOPHEN 1000 MG/100 ML VIAL (NON FORMULARY) IVPB ONE (14:51)
[2020-11-28] MEDS ORDERED: ACETAMINOPHEN INJECTION 100 ML IVPB ONE (15:22)
[2020-11-28 15:34] LABS: INR 1.2 (0.83-1.09); PROTHROMBIN TIME (PATIENT) 14.5 SEC (9.7-13.0)
[2020-11-28 15:36] LABS: ACTIVATED PTT 29.1 SECONDS (25.2-36.5)
[2020-11-28 15:37] LABS: BASO % 0.5 % (0-2.0); EOS % 0.9 % (0-4.5); HEMATOCRIT 35.2 % (35.4-49); LYMPH % 10.7 % (8-40); MCH 30.5 pg (25.7-33.7); MEAN CELL VOLUME 89.7 fl (80-96); MEAN PLT VOLUME 8.2 fl (7.5-11.1); MONO % 7.8 % (3.8-10.2); NEUT % 80.1 % (42.8-82.8); PLATELET COUNT 257 10^3/uL (134-434); RBC 3.92 M/mm3 (4.00-5.60); RDW 14.2 % (11.9-15.9); WHITE BLOOD COUNT 10.6 K/mm3 (4.0-10.0)
[2020-11-28 15:52] LABS: CHLORIDE 105 mmol/L (98-107); SODIUM 139 mmol/L (136-145)
[2020-11-28 15:54] LABS: CALCIUM 8.7 mg/dL (8.5-10.1)
[2020-11-28 15:55] LABS: ALBUMIN 3.6 g/dl (3.4-5.0); ANION GAP 5 MMOL/L (8-16); BLOOD UREA NITROGEN 14.7 mg/dL (7-18); CO2 29 mmol/L (21-32); GLUCOSE,RANDOM 85 mg/dL (74-106)
[2020-11-28 15:58] LABS: SGOT/AST 15 U/L (15-37)
[2020-11-28 16:00] LABS: BILIRUBIN,TOTAL 0.5 mg/dL (0.2-1); TOT PROT 7.9 g/dl (6.4-8.2)
[2020-11-28 16:01] LABS: ALK PHOS 78 U/L (45-117); SGPT/ALT 17 U/L (13-61)
[2020-11-28] MEDS ORDERED: VANCOMYCIN 1 GM in D5W (PRE-DOCKED) 1,000 MG/250 ML IVPB ONE (16:05)
[2020-11-28] MEDS ORDERED: SODIUM CHLORIDE 1,000 ML IV STA ×2 (16:05→18:06)
[2020-11-28] MEDS ORDERED: PIPERACILLIN/TAZOB 3.375 GM 3.375 GM in DEXTROSE 5%-WATER - 50 ML IVPB ONE (16:06)
[2020-11-28] MEDS ORDERED: morphine CARPU-JECT 4 MG/1 ML DISP.SYRIN IVPUSH ONE (16:24)
[2020-11-28] MEDS ORDERED: VANCOMYCIN 1 GRAM (PRE-DOCKED) 1,000 MG/250 ML BAG IVPB ONE (16:31)
[2020-11-28] MEDS ORDERED: PIPERACILLIN/TAZOB 3.375 GM 3.375 GM/50 ML BAG IVPB ONE (16:31)
[2020-11-28] MEDS ORDERED: morphine SULFATE 4 MG/ML VIAL ONE (16:39)
[2020-11-28] MEDS ORDERED: ONDANSETRON 4 MG/2 ML VIAL IVPUSH PRN (18:08)
[2020-11-28] MEDS ORDERED: oxyCODONE HCL 5 MG TABLET PO PRN (18:08)
[2020-11-28] MEDS ORDERED: SODIUM CHLORIDE 1,000 ML IV SCH (18:15)
[2020-11-28] MEDS: VANCOMYCIN 1 GM in D5W (PRE-DOCKED) 1,000 MG/250 ML IVPB SCH (21:29)
[2020-11-28] MEDS: morphine SULFATE 4 MG/ML VIAL IVPUSH PRN (21:30)
[2020-11-28 23:33] VITALS: BMI 32.3
[2020-11-29] MEDS ORDERED: DEXTROSE 5%-WATER - 50 ML IVPB ONE ×3 (01:14→17:49)
[2020-11-29] MEDS ORDERED: PIPERACILLIN/TAZOBACTAM 3.375 GM VIAL IVPB ONE ×3 (01:14→17:49)
[2020-11-29] MEDS: PIPERACILLIN/TAZOB 3.375 GM 3.375 GM in DEXTROSE 5%-WATER - 50 ML IVPB SCH ×3 (01:35→17:52)
[2020-11-29] MEDS: morphine SULFATE 4 MG/ML VIAL IVPUSH PRN (06:34)
[2020-11-29 08:47] LABS: HEMATOCRIT 33.6 % (35.4-49); HEMOGLOBIN 11.4 GM/dL (11.7-16.9); MCH 30.3 pg (25.7-33.7); MCHC 33.9 g/dl (32.0-35.9); MEAN CELL VOLUME 89.4 fl (80-96); MEAN PLT VOLUME 7.8 fl (7.5-11.1); PLATELET COUNT 242 10^3/uL (134-434); RBC 3.76 M/mm3 (4.00-5.60); RDW 14.1 % (11.9-15.9); WHITE BLOOD COUNT 9.5 K/mm3 (4.0-10.0)
[2020-11-29] MEDS ORDERED: VANCOMYCIN 1 GM in D5W (PRE-DOCKED) 1,000 MG/250 ML IVPB SCH ×2 (09:00→21:00)
[2020-11-29 09:18] LABS: BLOOD UREA NITROGEN 10.3 mg/dL (7-18); CALCIUM 7.9 mg/dL (8.5-10.1)
[2020-11-29 09:21] LABS: CREATININE 0.9 mg/dL (0.55-1.3)
[2020-11-29 09:22] LABS: PHOSPHOROUS 3.2 mg/dL (2.5-4.9)
[2020-11-29 09:23] LABS: BILIRUBIN,TOTAL 0.8 mg/dL (0.2-1); TOT PROT 6.9 g/dl (6.4-8.2)
[2020-11-29] MEDS ORDERED: PANTOPRAZOLE SODIUM 40 MG VIAL IVPUSH SCH (10:00)
[2020-11-29] MEDS ORDERED: ENOXAPARIN NA (PORCINE) 40 MG/0.4 ML DISP.SYRIN SQ SCH (10:00)
[2020-11-29] MEDS ORDERED: MIDAZOLAM HCL 2 MG/2 ML SINGLE DOSE VIAL ONE (10:21)
[2020-11-29] MEDS ORDERED: PROPOFOL 20 ML ONE ×2 (10:21→11:22)
[2020-11-29] MEDS ORDERED: LIDOCAINE HCL/PF 2% SDV 5ML VIAL ONE (10:21)
[2020-11-29] MEDS ORDERED: PHENYLEPHRINE HCL 10 MG/1 ML SINGLE DOSE VIAL ONE (11:26)
[2020-11-29] MEDS ORDERED: LACTATED RINGERS SOLUTION 1,000 ML IV SCH (11:30)
[2020-11-29] MEDS ORDERED: ONDANSETRON 4 MG/2 ML VIAL IVPUSH PRN (12:14)
[2020-11-29] MEDS ORDERED: morphine SULFATE 4 MG/ML VIAL IVPUSH PRN (12:14)
[2020-11-29] MEDS: SODIUM CHLORIDE 1,000 ML IV SCH (13:15)
[2020-11-29] MEDS: LACTATED RINGERS SOLUTION 1,000 ML IV SCH (14:53)
[2020-11-29] MEDS ORDERED: PIPERACILLIN/TAZOB 3.375 GM 3.375 GM in DEXTROSE 5%-WATER - 50 ML IVPB SCH (18:00)
[2020-11-29] MEDS: VANCOMYCIN 1 GM in D5W (PRE-DOCKED) 1,000 MG/250 ML IVPB SCH ×2 (20:29→20:30)
[2020-11-29] MEDS: oxyCODONE HCL 5 MG TABLET PO PRN (20:50)
[2020-11-29] MEDS: ROSUVASTATIN CA 10 MG TABLET (FP) PO SCH (21:15)
[2020-11-30] MEDS ORDERED: PIPERACILLIN/TAZOBACTAM 3.375 GM VIAL IVPB ONE ×3 (02:36→16:41)
[2020-11-30] MEDS ORDERED: DEXTROSE 5%-WATER - 50 ML IVPB ONE ×3 (02:36→16:41)
[2020-11-30] MEDS: PIPERACILLIN/TAZOB 3.375 GM 3.375 GM in DEXTROSE 5%-WATER - 50 ML IVPB SCH ×3 (02:42→09:50)
[2020-11-30] MEDS: SODIUM CHLORIDE 1,000 ML IV SCH (03:44)
[2020-11-30] MEDS: VANCOMYCIN 1 GM in D5W (PRE-DOCKED) 1,000 MG/250 ML IVPB SCH ×3 (06:49→18:55)
[2020-11-30 09:07] LABS: BASO % 0.5 % (0-2.0); HEMATOCRIT 33.2 % (35.4-49); HEMOGLOBIN 11.4 GM/dL (11.7-16.9); LYMPH % 20.8 % (8-40); MCH 30.7 pg (25.7-33.7); MCHC 34.3 g/dl (32.0-35.9); MEAN CELL VOLUME 89.6 fl (80-96); MEAN PLT VOLUME 8.2 fl (7.5-11.1); MONO % 7.1 % (3.8-10.2); NEUT % 69.6 % (42.8-82.8); PLATELET COUNT 290 10^3/uL (134-434); RBC 3.71 M/mm3 (4.00-5.60); RDW 13.6 % (11.9-15.9); WHITE BLOOD COUNT 6.1 K/mm3 (4.0-10.0)
[2020-11-30 09:30] LABS: BLOOD UREA NITROGEN 9.1 mg/dL (7-18); CALCIUM 8.1 mg/dL (8.5-10.1); MAGNESIUM 2.3 mg/dL (1.8-2.4)
[2020-11-30 09:33] LABS: CREATININE 0.9 mg/dL (0.55-1.3)
[2020-11-30 09:35] LABS: BILIRUBIN,TOTAL 0.4 mg/dL (0.2-1); TOT PROT 7.2 g/dl (6.4-8.2)
[2020-11-30] MEDS: oxyCODONE HCL 5 MG TABLET PO PRN ×3 (09:49→22:34)
[2020-11-30] MEDS: DOCUSATE SODIUM 100 MG CAPSULE (FP) PO SCH ×2 (09:50→21:52)
[2020-11-30] MEDS: PANTOPRAZOLE 20 MG TABLET PO SCH (09:50)
[2020-11-30] MEDS ORDERED: PANTOPRAZOLE SODIUM 40 MG VIAL IVPUSH SCH (10:00)
[2020-11-30] MEDS: LACTATED RINGERS SOLUTION 1,000 ML IV SCH (15:47)
[2020-11-30] MEDS: ROSUVASTATIN CA 10 MG TABLET (FP) PO SCH (21:52)
[2020-12-01] MEDS: VANCOMYCIN 1 GM in D5W (PRE-DOCKED) 1,000 MG/250 ML IVPB SCH (06:47)
[2020-12-01 07:49] LABS: BASO % 0.8 % (0-2.0); HEMATOCRIT 33.6 % (35.4-49); HEMOGLOBIN 11.4 GM/dL (11.7-16.9); LYMPH % 24.5 % (8-40); MCH 30.5 pg (25.7-33.7); MCHC 34.1 g/dl (32.0-35.9); MEAN CELL VOLUME 89.7 fl (80-96); MEAN PLT VOLUME 8.2 fl (7.5-11.1); MONO % 9.5 % (3.8-10.2); NEUT % 62.2 % (42.8-82.8); PLATELET COUNT 278 10^3/uL (134-434); RBC 3.75 M/mm3 (4.00-5.60); RDW 13.4 % (11.9-15.9)
[2020-12-01] MEDS: oxyCODONE HCL 5 MG TABLET PO PRN (07:57)
[2020-12-01 08:10] LABS: CALCIUM 8.3 mg/dL (8.5-10.1); MAGNESIUM 2.3 mg/dL (1.8-2.4)
[2020-12-01 08:13] LABS: CREATININE 0.9 mg/dL (0.55-1.3)
[2020-12-01 08:14] LABS: BILIRUBIN,TOTAL 0.3 mg/dL (0.2-1); TOT PROT 7.2 g/dl (6.4-8.2)
[2020-12-01] MEDS ORDERED: MULTIVITAMINS THER W-MINERALS COMBO TABLET (FP) PO SCH (10:00)
[2020-12-01 10:01] VITALS: BP 126/76; PULSE 72; TEMP 98.2
[2020-12-01] MEDS: PANTOPRAZOLE 20 MG TABLET PO SCH (10:01)
[2020-12-01] MEDS: DOCUSATE SODIUM 100 MG CAPSULE (FP) PO SCH (10:01)
[2020-12-01] MEDS: LACTATED RINGERS SOLUTION 1,000 ML IV SCH (11:24)
[2020-12-01] MEDS ORDERED: AMOX TR/POT CLAV 875MG/125MG TABLETS (FP) PO SCH ×2 (17:30)
== END 2020-12-01 15:57 | disposition home or self-care (01) | DRG 856 ==
LOC: JER 13:49 → JERBED 16:21 → J6S 21:05
PROVIDERS: ADMIT Internal Medicine; ATTEND Nurse Practitioner Acute Care
PROC: 0Y950ZX Drainage of Right Inguinal Region, Open Approach, Diagnostic (ICD-10-PCS; principal; 2020-11-29 12:00)
DX: T81.44XA Sepsis following a procedure, initial encounter (principal); A41.02 Sepsis due to Methicillin resistant Staphylococcus aureus; L03.314 Cellulitis of groin; L02.214 Cutaneous abscess of groin; K21.9 Gastro-esophageal reflux disease without esophagitis; E78.00 Pure hypercholesterolemia, unspecified; Y83.8 Other surgical procedures as the cause of abnormal reaction of the patient, or of later complication, without mention of misadventure at the time of the procedure; D72.829 Elevated white blood cell count, unspecified; R00.1 Bradycardia, unspecified; R00.0 Tachycardia, unspecified; R50.9 Fever, unspecified; Z87.19 Personal history of other diseases of the digestive system; Z98.890 Other specified postprocedural states
CPT/HCPCS: 36415; 71045-TC-FY; 74177-TC; 80053; 83605; 83735; 84100; 84484; 85025; 85027; 85610; 85730; 87040; 87070; 87186; 87205; 93005; 93010; 94760; 97116-GP; 97161-GP; 99285-25; C9803; G0480; J0131; Q9967; U0003; U0005